=== PATIENT | male | born 1940 | race Caucasian/White ===

== ENCOUNTER 2018-01-20 08:40 | Emergency (ER) | payer MEDICARE, OTHER ==
[2018-01-20 09:09] LABS: ABSOLUTE EOSINOPHILS # (AUTO) 0.1 10^3/uL (0.0-0.6); ABSOLUTE LYMPHOCYTES (AUTO) 1.6 10^3/uL (0.5-4.7); ABSOLUTE NEUT (AUTO) 5.3 10^3/uL (1.7-8.2); BASOPHILS % (AUTO) 0.6 % (0-2); EOSINOPHILS % (AUTO) 1.1 % (0-6); HEMATOCRIT 38.1 % (37.9-51.0); HEMOGLOBIN 12.9 g/dL (13.5-17.0); LYMPHOCYTES % (AUTO) 19.9 % (13-45); MEAN CORPUSCULAR HEMOGLOBIN 33.8 pg (27.0-33.4); MEAN CORPUSCULAR HGB CONC 33.9 g/dL (32.0-36.0); MEAN CORPUSCULAR VOLUME 100 fl (80-97); MONOCYTES % (AUTO) 12.3 % (3-13); PLATELET COUNT 333 10^3/uL (150-450); RED BLOOD COUNT 3.82 10^6/uL (4.35-5.55); RED CELL DISTRIBUTION WIDTH 14.2 % (11.5-14.0); SEGMENTED NEUTROPHILS % (AUTO) 66.1 % (42-78); TOTAL CELLS COUNTED % (AUTO) 100 %; WHITE BLOOD COUNT 8.1 10^3/uL (4.0-10.5)
[2018-01-20 09:26] LABS: ALANINE AMINOTRANSFERASE 31 U/L (21-72); ALBUMIN 4.3 g/dL (3.5-5.0); ALKALINE PHOSPHATASE 78 U/L (38-126); ANION GAP 13 (5-19); ASPARTATE AMINO TRANSFERASE 38 U/L (17-59); BILIRUBIN,DIRECT 0.2 mg/dL (0.0-0.4); BILIRUBIN,TOTAL 0.2 mg/dL (0.2-1.3); BLOOD UREA NITROGEN 21 mg/dL (7-20); CALCIUM 9.4 mg/dL (8.4-10.2); CARBON DIOXIDE 27 mmol/L (22-30); CHLORIDE 102 mmol/L (98-107); CREATINE KINASE 56 U/L (55-170); GLUCOSE 101 mg/dL (75-110); POTASSIUM 4.4 mmol/L (3.6-5.0); SODIUM 141.9 mmol/L (137-145); TOTAL PROTEIN 7.8 g/dL (6.3-8.2)
--- NOTE | 2018-01-20 09:44 | RADIOLOGY REPORT (SQ) ---
EXAM DESCRIPTION: CHEST SINGLE VIEW COMPLETED DATE/TIME: 01/20/2018 9:12 am REASON FOR STUDY: tachycardia COMPARISON: AP chest 09/05/2009, 08/15/2009 EXAM PARAMETERS: NUMBER OF VIEWS: One view. TECHNIQUE: Single frontal radiographic view of the chest acquired. RADIATION DOSE: NA LIMITATIONS: Motion artifact FINDINGS: LUNGS AND PLEURA: Lungs are hyperinflated and hyperlucent. No gross acute infiltrates. N o pleural effusion or pneumothorax. MEDIASTINUM AND HILAR STRUCTURES: No masses. Contour normal. HEART AND VASCULAR STRUCTURES: Mild cardiomegaly BONES: No acute findings. HARDWARE: None in the chest. OTHER: No other significant finding. IMPRESSION: Motion artifact. No gross acute infiltrates TECHNICAL DOCUMENTATION: JOB ID: [id number]- All Rights Reserved Reading location - IP/workstation name: [email or web address]
[2018-01-20 09:51] LABS: CREATINE KINASE MB 1.99 ng/mL (<4.55)
[2018-01-20 09:53] LABS: TROPONIN I 0.047 ng/mL
--- NOTE | 2018-01-20 10:02 | ER Document Report ---
ED Cardiac - General Chief Complaint: Palpitations Stated Complaint: RAPID HEART RATE Time Seen by Provider: 01/20/18 09:18 Information source: Patient Notes: 77-year-old male with past medical history as recorded including intermittent atrial fibrillation on Ticosyn with stents x2 placed in 1998 who presents today stating at home he checked his heart rate and it was 101 and 108 on consecutive measurements. Patient denies any and all dizziness, lightheadedness, nausea, vomiting, chest pain, shortness of breath, calf pain or leg swelling. Patient has been told by his servicenow administrator developer that if his heart rate is above 100 he should come to the hospital. Patient had his Ticosyn increase in July of this year. Patient states when EMS placed an IV his heart rate went back to normal. He still denies any symptomatology at this time. He has an appointment with his servicenow administrator developer in 2 days. TRAVEL OUTSIDE OF THE [place] IN LAST 30 DAYS: No - HPI Patient complains to provider of: Other Was the onset of pain: Unknown Is the pain a: Chronic problem - See above Chest pain location: Other Quality of pain: Other - See above Chest pain radiation location: None - See above Severity now: None Severity at worst: Mild Pain level currently: Denies Associated symptoms: Other - See above Exacerbated by: Denies Relieved by: Other - See above Similar symptoms previously: Yes Recently seen / treated by doctor: Yes - Related Data Allergies/Adverse Reactions: Penicillins Allergy (Unverified 01/20/18 09:07) Past Medical History - Social History Smoking Status: Unknown if Ever Smoked Family History: Reviewed & Not Pertinent Patient has suicidal ideation: No Patient has homicidal ideation: No - Past Medical History Cardiac Medical History: Reports: Hx Heart Attack - 1998, Hx Hypercholesterolemia, Hx Hypertension Pulmonary Medical History: Reports: Hx COPD Renal/ Medical History: Denies: Hx Peritoneal Dialysis Past Surgical History: Reports: Hx Abdominal Surgery - x3 hernia repair, x2 stomach, Hx Bowel Surgery - colonoscopy 2015, Hx Cardiac Surgery - stents x2, Hx Neurologic Surgery - tumor removal - Immunizations Immunizations up to date: Yes Hx Diphtheria, Pertussis, Tetanus Vaccination: Yes Review of Systems - Review of Systems Constitutional: denies: Fever EENT: denies: Eye discharge, Nose discharge Cardiovascular: denies: Chest pain, Palpitations, Dizziness, Lightheaded Respiratory: denies: Short of breath Gastrointestinal: denies: Vomiting Genitourinary: denies: Dysuria Musculoskeletal: denies: Leg swelling Skin: Other - no hives. denies: Rash Neurological/Psychological: Other - no slurred speech -: Yes All other systems reviewed and negative Physical Exam - Vital signs Vitals: Pulse Ox 100 01/20/18 08:46 Notes: Reviewed vital signs and nursing note as charted by RN. CONSTITUTIONAL: Alert and oriented and responds appropriately to questions. Well -appearing; well-nourished HEAD: Normocephalic; atraumatic EYES: PERRL; Conjunctivae clear, sclerae non-icteric ENT: Normal nose; no rhinorrhea; moist mucous membranes; pharynx without lesions noted NECK: Supple without meningismus; non-tender; no cervical lymphadenopathy, no masses CARD: Regular rate and rhythm; no murmurs; symmetric distal pulses RESP: Normal chest excursion without splinting or tachypnea; breath sounds clear and equal bilaterally ABD/GI: Normal bowel sounds; non-distended; soft, non-tender; no palpable organomegaly or masses BACK: The back appears normal and is non-tender to palpation EXT: Normal ROM in all joints; non-tender to palpation; no edema SKIN: No acute lesions noted NEURO: CN 2-12 intact; 5/5 bilateral upper and lower extremity strength with sensation intact to light touch PSYCH: The patient's mood and manner are appropriate. Grooming and personal hygiene are appropriate Course - Re-evaluation Re-evalutation: Given the above history and physical examination I do not believe ACS, PE, or dissection is likely. I will check the patient's electrolytes as well as a troponin with a possible repeat troponin. EKG shows a heart of 49, sinus bradycardia, normal axis, no ST elevation or depression, inverted T waves in aVL with LVH present. 01/20/18 10:01 Patient is still symptom-free. Initial troponin as recorded. Repeat troponin at 1130 has been ordered. 01/20/18 12:28 Repeat troponin as recorded. Patient has had no tachycardia, irregular heartbeat, palpitations here in the emergency department. He has an appointment on Sunday with his servicenow administrator developer. Patient will be discharged home with strict return precautions. Patient and patient's son in the room are comfortable with this plan. - Vital Signs Vital signs: Temp Pulse Resp BP Pulse Ox 49 L 18 109/65 99 01/20/18 09:05 01/20/18 11:01 01/20/18 11:00 01/20/18 11:11 - Laboratory Result Diagrams: 01/20/18 08:30 01/20/18 08:30 Laboratory results interpreted by me: 01/20/18 01/20/18 08:30 08:30 RBC 3.82 L Hgb 12.9 L MCV 100 H MCH 33.8 H RDW 14.2 H BUN 21 H Discharge - Discharge Clinical Impression: Palpitations Condition: Good Disposition: HOME, SELF-CARE Additional Instructions: Come back immediately with any return of palpitations, tachycardia, any chest pain, lightheadedness, dizziness, leg swelling, shortness of breath, or any other acute problems. Please make sure that you keep your appointment on Sunday with the servicenow administrator developer as scheduled. Referrals: TATYANA MARTINES MD [Primary Care Provider] - Follow up as needed
[2018-01-20 12:55] VITALS: BP 127/67
--- NOTE | 2018-01-20 13:58 | EKG REPORT ---
SEVERITY:- ABNORMAL ECG - SINUS BRADYCARDIA NONSPECIFIC INTRAVENTRICULAR CONDUCTION DELAY PROBABLE LEFT VENTRICULAR HYPERTROPHY INFERIOR INFARCT, OLD : Confirmed by: Clarissa Sherwood MD 20-Jan-2018 13:58:10
== END 2018-01-20 12:55 | disposition home or self-care (01) ==
LOC: ER 08:40
DX: R00.2 Palpitations (principal); I48.91 Unspecified atrial fibrillation; Z79.899 Other long term (current) drug therapy; I10 Essential (primary) hypertension; J44.9 Chronic obstructive pulmonary disease, unspecified
CPT/HCPCS: 36415; 71045; 80053; 82550; 82553; 84484; 85025; 93005; 93010; 99285

== ENCOUNTER 2018-11-25 11:07 | Emergency (ER) | payer MEDICARE, OTHER ==
[2018-11-25] MEDS ORDERED: DILTIAZEM HCL/D5W 125 MG/125 ML RTUINJ IV PRN (11:23)
[2018-11-25] MEDS ORDERED: DILTIAZEM HCL INJ 25 MG/5 ML VIAL IV ONE ×2 (11:23→12:33)
[2018-11-25 11:37] LABS: ABSOLUTE EOSINOPHILS # (AUTO) 0.1 10^3/uL (0.0-0.6); ABSOLUTE LYMPHOCYTES (AUTO) 0.6 10^3/uL (0.5-4.7); ABSOLUTE MONOCYTES (AUTO) 1.1 10^3/uL (0.1-1.4); ABSOLUTE NEUT (AUTO) 9.2 10^3/uL (1.7-8.2); BASOPHILS % (AUTO) 0.4 % (0-2); EOSINOPHILS % (AUTO) 0.9 % (0-6); HEMATOCRIT 38.6 % (37.9-51.0); HEMOGLOBIN 12.9 g/dL (13.5-17.0); LYMPHOCYTES % (AUTO) 5.1 % (13-45); MEAN CORPUSCULAR HEMOGLOBIN 32.7 pg (27.0-33.4); MEAN CORPUSCULAR HGB CONC 33.3 g/dL (32.0-36.0); MEAN CORPUSCULAR VOLUME 98 fl (80-97); MONOCYTES % (AUTO) 9.9 % (3-13); PLATELET COUNT 291 10^3/uL (150-450); RED BLOOD COUNT 3.93 10^6/uL (4.35-5.55); RED CELL DISTRIBUTION WIDTH 13.7 % (11.5-14.0); SEGMENTED NEUTROPHILS % (AUTO) 83.7 % (42-78); TOTAL CELLS COUNTED % (AUTO) 100 %
[2018-11-25 11:40] LABS: INTERNATIONAL RATION (INR) 1.32; PROTHROMBIN TIME 16.4 SEC (11.4-15.4)
[2018-11-25 11:51] LABS: ALKALINE PHOSPHATASE 65 U/L (38-126); ANION GAP 13 (5-19); ASPARTATE AMINO TRANSFERASE 64 U/L (17-59); BILIRUBIN,DIRECT 0.2 mg/dL (0.0-0.4); BILIRUBIN,TOTAL 0.6 mg/dL (0.2-1.3); BLOOD UREA NITROGEN 29 mg/dL (7-20); CALCIUM 8.4 mg/dL (8.4-10.2); CARBON DIOXIDE 21 mmol/L (22-30); CHLORIDE 101 mmol/L (98-107); CREATINE KINASE 554 U/L (55-170); GLUCOSE 144 mg/dL (75-110); POTASSIUM 4.2 mmol/L (3.6-5.0)
[2018-11-25 12:02] LABS: CREATINE KINASE MB 4.81 ng/mL (<4.55); TROPONIN I 0.013 ng/mL
--- NOTE | 2018-11-25 12:08 | EKG REPORT ---
SEVERITY:- ABNORMAL ECG - ATRIAL FIBRILLATION WITH RAPID V-RATE NONSPECIFIC INTRAVENTRICULAR CONDUCTION DELAY PROBABLE LVH WITH SECONDARY REPOL ABNRM INFERIOR INFARCT, OLD CONSIDER POSTERIOR WALL INVOLVEMENT ST DEPRESSION, PROBABLY RATE RELATED : Confirmed by: Clarissa Sherwood MD 25-Nov-2018 12:07:55
--- NOTE | 2018-11-25 12:30 | RADIOLOGY REPORT (SQ) ---
EXAM DESCRIPTION: CHEST SINGLE VIEW COMPLETED DATE/TIME: 11/25/2018 12:17 pm REASON FOR STUDY: weakness, rapid atrial fib COMPARISON: None. EXAM PARAMETERS: NUMBER OF VIEWS: One view. TECHNIQUE: Single frontal radiographic view of the chest acquired. RADIATION DOSE: NA LIMITATIONS: None. FINDINGS: LUNGS AND PLEURA: Emphysematous change with mild right basilar opacity. Possible small ri ght effusion versus basilar pleural thickening and scarring. No pneumothorax. MEDIASTINUM AND HILAR STRUCTURES: No discrete mass. HEART AND VASCULAR STRUCTURES: Normal heart size. Ectatic atherosclerotic thoracic aorta, stable. BONES: Decreased mineralization. No acute findings. HARDWARE: None in the chest. OTHER: No other significant finding. IMPRESSION: Minimal right basilar opacities, possibly atelectasis or infection. Likely trace right effusion versus pleural thickening. Emphysematous change. TECHNICAL DOCUMENTATION: JOB ID: [id number] [employer]- All Rights Reserved Reading location - IP/workstation name: [email or web address]
--- NOTE | 2018-11-25 13:12 | ER Document Report ---
ED General - General Chief Complaint: Arrhythmia Stated Complaint: DIARRHEA Time Seen by Provider: 11/25/18 11:20 Primary Care Provider: TATYANA MARTINES MD [Primary Care Provider] - Follow up as needed TRAVEL OUTSIDE OF THE [place] IN LAST 30 DAYS: No - HPI Notes: Patient is a 77-year-old gentleman who presents to the emergency department for evaluation of diarrhea and weakness. His daughter is the primary historian. Evidently the patient was admitted to the hospital in [place], where he sees cardiology, neurology. He was restarted on his Tikosyn for atrial fibrillation. While in the hospital, the patient was constipated. The nurse gave him prune juice. He was discharged home afterwards. Since then he has had severe diarrhea. No fevers or chills. He was so weak he could not get up off the toilet, so EMS was called. He was also found to be in rapid atrial fi brillation. The patient denies any chest pain or difficulty breathing. He states to me that besides the diarrhea he has absolutely no symptoms, and is unsure as to why he is here. - Related Data Allergies/Adverse Reactions: Penicillins Allergy (Unverified 01/20/18 09:07) Home Medications: Norvasc 10 mg, PreserVision, primidone 150 mg, Toprol 25 mg bid, Symbicort 160/4.5, Eliquis 2.5 mg, Lipitor 40 mg daily, amitriptyline 25 mg daily, ferrous sulfate 325 mill grams daily Past Medical History - General Information source: Patient, Relative - Social History Smoking Status: Never Smoker Family History: Reviewed & Not Pertinent Patient has suicidal ideation: No Patient has homicidal ideation: No - Past Medical History Cardiac Medical History: Reports: Hx Atrial Fibrillation, Hx Heart Attack - 1998, Hx Hypercholesterolemia, Hx Hypertension Pulmonary Medical History: Reports: Hx COPD Neurological Medical History: Reports: Hx Cerebrovascular Accident Renal/ Medical History: Denies: Hx Peritoneal Dialysis Past Surgical History: Reports: Hx Abdominal Surgery - x3 hernia repair, x2 stomach, Hx Bowel Surgery - colonoscopy 2016, Hx Cardiac Surgery - stents x2, Hx Neurologic Surgery - tumor removal - Immunizations Immunizations up to date: Yes Hx Diphtheria, Pertussis, Tetanus Vaccination: Yes Review of Systems - Review of Systems Constitutional: See HPI EENT: No symptoms reported Cardiovascular: No symptoms reported Respiratory: No symptoms reported Gastrointestinal: See HPI Genitourinary: No symptoms reported Musculoskeletal: No symptoms reported Skin: No symptoms reported Neurological/Psychological: See HPI Physical Exam - Vital signs Vitals: Pulse Ox 88 L 11/25/18 11:14 - Notes Notes: Vital signs reviewed, please refer to chart. Head is normocephalic, atraumatic. Pupils equal round, reactive to light. Neck is supple without meningismus. Heart is irregularly irregular. Lungs are clear to auscultation bilaterally. Abdomen is soft, nontender, normoactive bowel sounds throughout. Extremities without cyanosis, clubbing. Posterior calves are nontender. Peripheral pulses are equal. Skin is warm and dry. Exam is performed. Mildly diminished rectal tone but liquid brown stool, heme-negative. Patient is awake, alert, neuro logical exam is nonfocal. Course - Re-evaluation Re-evalutation: 11/25/18 13:11 Patient presents to the emergency department for evaluation. On initial presentation his heart rate is in the 170s and he had significantly rapid atrial fibrillation. He did have rate related changes consistent with possible ischemia. He was bolused 20 mg of Cardizem which seemed to bring his heart down significantly. He was started on a drip. This was gradually increased from 5 to 15 mg an hour, the patient remains significantly tachycardic. A second bolus of Cardizem was administered, patient's heart rate is currently in the 140s. Patient has remained chest pain-free throughout the course of his stay. Laboratory investigations are largely unremarkable for anything acute. I spoke to the patient as well as his daughter. The patient was strongly prefer that he be transferred to [facility], she states that his primary care providers, neurologist, and hoop riveter are they are. Beyond that, the patient has recently been on Tikosyn. It is wlash to have an echo scale assembly set up worker on staff given the multiple medication changes that have been present in this patient, as well as his other comorbidities. Will contact [facility] for transfer. 11/25/18 14:[address] Loza at [facility]. At this point, patient's heart rate is still not controlled. I had considered esmolol. We discussed possible options. At this point I will await possible phone call from Dr. Lane. Patient again remains chest pain-free, symptom-free, no complaints. 11/25/18 14:28 I spoke with Cheli Troncoso, nurse practitioner for Dr. Lane, scale assembly set up worker. He is currently placing a pacemaker. They agree that bridging with esmolol to try and control patient's heart rate before transfer is very appropriate. We will attempt esmolol. 11/25/18 15:40 Patient is currently on esmolol. Received a bolus and is now in the 50 mcg/kg drip. His heart rate is currently 120. He remained stable, again remains without symptoms. Dr. Loza will happily except the patient to [facility] for further care. 11/25/18 15:52 - Vital Signs Vital signs: Temp Pulse Resp BP Pulse Ox 105/70 92 11/25/18 14:02 11/25/18 14:02 11/25/18 14:02 - Laboratory Result Diagrams: 11/25/18 11:19 11/25/18 11:19 Laboratory results interpreted by me: 11/25/18 11/25/18 11/25/18 11:19 11:19 11:19 WBC 11.0 H RBC 3.93 L Hgb 12.9 L MCV 98 H Lymph % (Auto) 5.1 L Absolute Neuts (auto) 9.2 H Seg Neutrophils % 83.7 H PT Sodium 134.5 L Carbon Dioxide 21 L BUN 29 H Glucose 144 H AST 64 H Creatine Kinase 554 H CK-MB (CK-2) 4.81 H Total Protein 6.0 L Albumin 3.0 L 11/25/18 11:19 WBC RBC Hgb MCV Lymph % (Auto) Absolute Neuts (auto) Seg Neutrophils % PT 16.4 H Sodium Carbon Dioxide BUN Glucose AST Creatine Kinase CK-MB (CK-2) Total Protein Albumin - Diagnostic Test Radiology reviewed: Reports reviewed Radiology results interpreted by me: 11/25/18 13:12 Chest X-Ray 11/25/18 11:22 IMPRESSION: Minimal right basilar opacities, possibly atelectasis or infection. Likely trace right effusion versus pleural thickening. Emphysematous change. - EKG Interpretation by Me Additional EKG results interpreted by me: 11/25/18 13:12 Atrial fibrillation with a rate of 172 bpm. Normal axis, IVCD. T wave inversion and ST depression inferolaterally, likely rate related. No acute ST elevation. Significant change from prior study. Critical Care Note - Critical Care Note Total time excluding time spent on procedures (mins): 45 Discharge - Discharge Clinical Impression: Rapid atrial fibrillation, Weakness Condition: Stable Disposition: [facility] Admitting Provider: Dr. Loza, Dr. Lane Referrals: TATYANA MARTINES MD [Primary Care Provider] - Follow up as needed
[2018-11-25] MEDS ORDERED: ESMOLOL HCL/SOD CL 2,500 MG/250 ML RTUINJ IV PRN (13:59)
[2018-11-25] MEDS ORDERED: ESMOLOL HCL INJ/PF 100 MG/10 ML SDV IV SCH (14:00)
[2018-11-25 19:54] VITALS: BP 100/68
--- NOTE | 2018-11-25 20:04 | ER Document Report ---
Doctor's Note Notes: 11/25/18 20:03 Patient reevaluated just now. Transportation is here. Patient is still tachycardic between 130 and 150. It is atrial fibrillation. Esmolol has been increased. Patient is mentating at baseline. Lungs are with some rhonchi but no rales. Patient's blood pressure is 100 systolic. Patient at this time does seem stable for transfer. 11/25/18 20:11
== END 2018-11-25 20:19 | disposition short-term general hospital (02) ==
LOC: ER 11:07
DX: I48.91 Unspecified atrial fibrillation (principal); R53.1 Weakness; R19.7 Diarrhea, unspecified; R00.0 Tachycardia, unspecified; E78.00 Pure hypercholesterolemia, unspecified; I10 Essential (primary) hypertension; Z88.0 Allergy status to penicillin; Z86.73 Personal history of transient ischemic attack (TIA), and cerebral infarction without residual deficits; I25.2 Old myocardial infarction
CPT/HCPCS: 93005; 96376; 99291; 96365; 96366; 96367; 36415; 82553; 82550; 84443; 85025; 85610; 80053; 84484; 71045; 93010; J3490 ×3